=== PATIENT | female | born 1955 | race Caucasian/White ===

== ENCOUNTER 2017-01-12 23:00 | Emergency (ER) | payer BC ==
[2017-01-12 22:56] LABS: BASOPHILS 0.4 %; BASOPHILS ABSOLUTE 0.04 10/3/uL (0.0-0.16); EOSINOPHILS ABSOLUTE 0.27 10/3/uL (0.0-0.53); HEMATOCRIT 39.3 % (36.0-48.0); HEMOGLOBIN 13.3 g/dL (12.0-16.0); IMMATURE GRANULOCYTES 0.3 %; IMMATURE GRANULOCYTES ABSOLUTE 0.03 10/3/uL (0.0-0.11); LYMPHOCYTES 15.7 %; LYMPHOCYTES ABSOLUTE 1.41 10/3/uL (0.67-4.30); MEAN CORPUS HGB CONC 33.8 g/dL (32.0-36.0); MEAN CORPUSCULAR HEMOGLOB 30.4 pg (26.0-34.0); MEAN CORPUSCULAR VOLUME 89.7 fL (80-100); MEAN PLATELET VOLUME 9.5 fL (9.2-13.0); MONOCYTES 8.3 %; MONOCYTES ABSOLUTE 0.75 10/3/uL (0.21-1.20); NEUTROPHILS 72.3 %; NEUTROPHILS ABSOLUTE 6.49 10/3/uL (2.02-8.40); PLATELET COUNT 187 10/3/uL (150-400); RBC DISTRIBUTION WIDTH 12.2 % (12.0-16.0); RED CELL COUNT 4.38 10/6/uL (4.0-5.6)
[2017-01-12 22:57] LABS: MANUAL DIFF NO %
[~2017-01-12 23:00] MED LIST: AFRIN15 NAS; ALORA TD; ASAB PO; COUMADIN4 MG PO; COZ50 PO; DYAZIDE PO; L20 PO; MAX25 PO; NORV5 PO; PERCOCET1 TA4 PO; PRILOSEC40 MG PO; TOPXL100 PO; X5 PO
[2017-01-12 23:13] LABS: ALBUMIN 3.6 G/DL (3.5-5.0); ALKALINE PHOSPHATASE 80 U/L (45-117); BUN (BLOOD UREA NITROGEN) 11 MG/DL (6-23); CALCIUM, SERUM 8.4 MG/DL (8.5-10.4); CHLORIDE, SERUM 92 MMOL/L (96-112); CO2 (CARBON DIOXIDE) 26 MMOL/L (24-34); CREATININE 0.67 MG/DL (0.55-1.02); GFR AFRICAN AMERICAN 108 ML/MIN (>=60); GFR NON AFRICAN AMERICAN 94 ML/MIN (>=60); GLOBULIN 3.6 G/DL (2.5-4.1); GLUCOSE, SERUM 130 MG/DL (60-99); POTASSIUM, SERUM 3.4 MMOL/L (3.5-5.3); SGOT(AST) 58 U/L (5-40); SGPT(ALT) 69 U/L (5-65); SODIUM, SERUM 129 MMOL/L (135-148); TOTAL BILIRUBIN 0.7 MG/DL (0-1.2); TOTAL PROTEIN 7.2 G/DL (6.0-8.5); TROPONIN I <0.02 NG/ML (<0.05)
== END 2017-01-13 02:38 | disposition home or self-care (01) ==
LOC: ER 23:00
PROVIDERS: Nurse Practitioner Acute Care
DX: R42 Dizziness and giddiness (principal); R51 Headache; I50.9 Heart failure, unspecified; I10 Essential (primary) hypertension; K21.9 Gastro-esophageal reflux disease without esophagitis; Z79.82 Long term (current) use of aspirin; Z79.899 Other long term (current) drug therapy
CPT/HCPCS: 70450; 71010; 80053; 83690; 84484; 85025; 93005; 96374; 96375; 99285; A9270-GY; J2405; J3360

== ENCOUNTER 2017-03-21 23:00 | Observation (INO) | payer BC ==
--- NOTE | ~2017-03-21 | HP ---
History And Physical [facility] [address] [place]. [address] NAME: FREYA SOUTH : 51 STATUS : DIS Aaron PAT#: [id number] AGE: 62 ADM/REG DATE : 03/21/17 MR#: [id number] REPORT SERV DATE: 03/24/17 DICTATED BY: ZANE WISDOM DATE: 03/22/17 REPORT STATUS : Draft TRANSCRIBED BY: MODL DATE: 03/22/17 DATE OF ADMISSION: 03/21/2017 POOR AUDIO CHIEF COMPLAINT: A 62-year-old female, presenting with chest pain and shortness of breath. HISTORY OF PRESENT ILLNESS: The patient's history was obtained through careful interview with the patient and coupled with review of [facility] medical records. The patient states that just on the night of admission, she began to develop shortness of breath and chest pain. She describes her shortness of breath as dyspnea on exertion and her chest pain as in the middle of her chest, radiating to the left lower lung quality "like someone sitting on my chest" 810 severity. She has had a cough that is nonproductive. She has had nausea, but no vomiting. The patient has experienced lightheadedness. No diaphoresis. She has had chills, rigors but no fevers. Tonight, she has had a progressive headache as well. It is in her forehead area. It's 2/10 but then has increased as the evening has gone on. No abdominal pain. No lower extremity edema. REVIEW OF SYSTEMS: Otherwise, a 14-point review of systems was obtained and was negative. PAST MEDICAL HISTORY: 1. Congestive heart failure followed by Dr. Redd. 2. Gastroesophageal reflux disorder. Duodenitis seen by Dr. Nirav Valenzuela. 3. Pancreatitis. 4. Fatty liver disease. 5. Hypertension. 6. . 7. MCA on the right side, under observation. PAST SURGICAL HISTORY: 1. Knee surgery. 2. Right shoulder surgery. 3. Cholecystectomy. 4. Hysterectomy. ALLERGIES: NO KNOWN DRUG ALLERGIES. SOCIAL HISTORY: The patient is . She retired a year ago, as an operating room nurse History And Physical [address] [place]. [address] NAME: FREYA SOUTH : 51 STATUS : DIS Aaron PAT#: [id number] AGE: 62 ADM/REG DATE : 03/21/17 MR#: [id number] REPORT SERV DATE: 03/24/17 DICTATED BY: ZANE WISDOM DATE: 03/22/17 REPORT STATUS : Draft TRANSCRIBED BY: SHANNA DATE: 03/22/17 here at [facility]. She has no children. No tobacco abuse. Occasional wine or beer. FAMILY HISTORY: Heart disease. CURRENT MEDICATIONS: Include Norvasc 5 mg p.o. daily, aspirin 81 mg p.o. daily, estradiol, ibuprofen 800 mg p.o. b.i.d., Cozaar 50 mg p.o. b.i.d., metoprolol-XL 100 mg p.o. b.i.d., Prilosec 40 mg p.o. daily, Afrin nasal spray, triamterene/hydrochlorothiazide 37.5/25 p.o. daily. PHYSICAL EXAMINATION: VITAL SIGNS: Temperature 98.1, pulse 100, blood pressure 185/102, respiratory rate 18, O2 saturation 93% on 2 L nasal cannula. GENERAL: A pleasant, cooperative female, not in any particular distress though. HEENT: Pupils are equal, round, and reactive to light. No conjunctival pallor. No scleral icterus. Nares are patent. Oropharynx is clear of obstruction. Moist mucous membranes. NECK: Trachea midline. No thyromegaly. LYMPH: No cervical lymphadenopathy. No supraclavicular lymphadenopathy. RESPIRATORY: Completely clear to auscultation. I appreciate no wheezes, rales rhonchi. Has a normal respiratory effort despite claiming she feels short of breath. CARDIOVASCULAR: Tachycardic, regular rhythm. No murmurs, rubs, or gallops. No extremity edema is appreciated. ABDOMEN: Soft, nontender, nondistended. Normal bowel sounds auscultated throughout. No hepatosplenomegaly. DERMATOLOGICAL: Warm and dry extremities. No pallor. No cyanosis. PSYCHIATRIC: Normal affect. Good mood. Alert and oriented x3. LABORATORY DATA: White blood cell count 6.8, hemoglobin 14, hematocrit 42, platelets 178, sodium 131, potassium 3.8, chloride 95, bicarb 28, BUN 10, creatinine 0.7, glucose 100. ABG demonstrates pH 7.37, a PaCO2 of 39, a PaO2 of 76 and a bicarb of 22. INR 0.9. Lipase 342. Brain natriuretic peptide 84, troponin negative. EKG by my own evaluation shows no acute cardiopulmonary process. CT scan of the chest shows atelectasis changes. ASSESSMENT AND PLAN: 1. Chest pain, persistent. Follow troponin, placed on nitroglycerin paste, aspirin. Because of persistent chest pain rather than doing a stress test, which I believe it is appropriate to have a Cardiology consult with Dr. Redd. 2. Hypoxemia. Check procalcitonin, negative brain natriuretic peptide. Provide supportive care. No wheezes, no rales. Possible pneumonia ?.. 3. Right MCA brain because of increasing headache. We will check a CT scan of the brain. History And Physical [address] [address] NAME: FREYA SOUTH : 51 STATUS : DIS Aaron PAT#: [id number] AGE: 62 ADM/REG DATE : 03/21/17 MR#: [id number] REPORT SERV DATE: 03/24/17 DICTATED BY: ZANE WISDOM DATE: 03/22/17 REPORT STATUS : Draft TRANSCRIBED BY: SHANNA DATE: 03/22/17 PREETI/SHANNA Zane Wisdom M.D. / [id number] CC: MD Tavo Ordaz M.D.
--- NOTE | ~2017-03-21 | DS ---
Discharge Summary [facility] [address] [place]. [address] NAME: FREYA SOUTH : 51 STATUS : DIS Aaron PAT#: [id number] AGE: 62 ADM/REG DATE : 03/21/17 MR#: [id number] REPORT SERV DATE: 03/24/17 DICTATED BY: EWA BOOTHE DATE: 03/23/17 REPORT STATUS : Draft TRANSCRIBED BY: SHANNA DATE: 03/23/17 ADMISSION DATE: 03/21/2017 DISCHARGE DATE: 03/23/2017 PRINCIPAL DIAGNOSIS: . REASON FOR ADMISSION: Chest pain due to nausea and vomiting in the setting of acute gastroenteritis illness. Please see Dr. Toussaint's dictation on 03/22/2017. HOSPITAL COURSE: Admitted with chief complaint of chest pain, but because she had mentioned vomiting and a headache, she had CTs of the head, thorax, and abdomen, all of which were negative. Cardiology was consulted, but troponins were negative. EKG was negative. She actually stopped vomiting. Began having diarrhea. She actually felt better after IV fluids. She felt that she has had diarrhea, was recurrent for her. She took over-the- counter Lomotil and was able to be released in satisfactory condition, following up with primary care provider. DILLON/SHANNA Ewa Boothe M.D. / [id number] CC: Ewa Boothe M.D.
--- NOTE | ~2017-03-21 | CN ---
Consultation Report [facility] [address] [place]. [address] NAME: FREYA SOUTH : 51 STATUS : ADM Aaron PAT#: [id number] AGE: 62 ADM/REG DATE : 03/21/17 MR#: [id number] REPORT SERV DATE: 03/22/17 DICTATED BY: TAVO PEREZ DATE: 03/22/17 REPORT STATUS : Draft TRANSCRIBED BY: MODL DATE: 03/22/17 DATE OF CONSULTATION: 03/22/2017 CHIEF COMPLAINT: Nausea, vomiting, abdominal pain, chest pain, and anxiety. HISTORY OF PRESENT ILLNESS: Ms. South is a 62-year-old woman with a history of hypertension, pancreatitis, and preserved left ventricular systolic function by echo in 09/2015. She has no diagnosed history of coronary artery disease. She has had worsening episodes of nausea, sometimes with vomiting, feeling sweaty all over, anxious, and having chest pain at the same time. Her blood pressure is elevated during these episodes. She presents to the emergency room where she was admitted for further evaluation. Inpatient evaluation so far, has revealed a BNP of 84 and 105. Troponin has been negative at less than 0.02 x2. Procalcitonin as a marker of infection is 0.06. Amylase and lipase are within normal limits. She underwent a chest CT angiogram which showed no evidence of pulmonary embolism. PAST MEDICAL HISTORY: 1. Hypertension. 2. History of MCA aneurysm, followed by Neurology. 3. History of pancreatitis. SOCIAL HISTORY: She is a retired operating room nurse. She does not smoke or drink alcohol. FAMILY HISTORY: There is no family history of early coronary artery disease. REVIEW OF SYSTEMS: A complete review of systems was obtained, which is negative in detail except as mentioned above in the HPI. ALLERGIES: NO KNOWN DRUG ALLERGIES. MEDICATIONS: Include Norvasc 5 mg daily, aspirin 81 mg daily, estradiol, Motrin, Cozaar 50 mg twice a day, Toprol-XL 100 mg twice a day, Prilosec, Afrin nasal spray, and Maxzide. PHYSICAL EXAMINATION: VITAL SIGNS: Blood pressure initially 185/100, heart rate of 100, respiratory rate of 14. GENERAL: Comfortable, in no acute distress. HEENT: Anicteric. No xanthelasma. Lips without cyanosis. NECK: No JVD. Carotids 2+ and symmetric. No carotid bruits. LUNGS: CTA bilaterally. No wheezes or rhonchi. No accessory muscle use. COR: RRR. Normally placed PMI. Normal S1 and S2. No murmurs, rubs or gallops. ABD: Soft, nontender, nondistended. Normal bowel sounds. No abdominal bruits. EXT: No clubbing, cyanosis or edema. 2+ and symmetric distal pulses. Consultation Report [facility] [address] [place]. [address] NAME: FREYA SOUTH : 51 STATUS : ADM Aaron PAT#: [id number] AGE: 62 ADM/REG DATE : 03/21/17 MR#: [id number] REPORT SERV DATE: 03/22/17 DICTATED BY: TAVO PEREZ DATE: 03/22/17 REPORT STATUS : Draft TRANSCRIBED BY: SHANNA DATE: 03/22/17 SKIN: Warm. Dry. No venous stasis changes. MS: No kyphosis. NEURO/PSYCH: Oriented x3. No anxiety or depression. LABORATORY STUDIES: BNP of 105. Lactate of 1.5. Sedimentation rate of 7. Procalcitonin of 0.06. Lipase of 230, amylase of 43. Troponin of 0.02 x2. Creatinine of 0.7, potassium of 3.8, sodium 131. White count of 6.8 and hematocrit of 41. A chest CT angiogram shows no evidence of pulmonary embolism. A pulmonary infiltrate as described on the report. There is evidence of coronary artery atherosclerosis noted. EKG: A 12-lead EKG shows sinus rhythm at 88 beats per minute. Nonspecific T-wave abnormalities are noted. No Q-waves. IMPRESSION: This is a 62-year-old woman with a history of hypertension, obesity, and prior pancreatitis. She presents with episodes of nausea, vomiting, diaphoresis, and chest discomfort in the setting of hypertension. I do not know whether these are simply anxiety- type reactions or whether there is some underlying medical etiology. It is hard to diagnose her with congestive heart failure with a BNP of 84 and 105. There is certainly no evidence of a non-ST elevation myocardial infarction with negative troponins. She does not have pancreatitis by enzymes. Her sedimentation rate is low. We will consider further cardiovascular evaluations, such as echocardiogram or stress testing pending her clinical course over the next 24 hours. PETROS/SHANNA Tavo Perez M.D. / [id number] CC: Brandon Zheng MD
[2017-03-21 23:14] LABS: BASOPHILS 0.4 %; BASOPHILS ABSOLUTE 0.03 10/3/uL (0.0-0.16); EOSINOPHILS 4.1 %; EOSINOPHILS ABSOLUTE 0.28 10/3/uL (0.0-0.53); HEMATOCRIT 41.7 % (36.0-48.0); HEMOGLOBIN 14.5 g/dL (12.0-16.0); IMMATURE GRANULOCYTES 0.1 %; IMMATURE GRANULOCYTES ABSOLUTE 0.01 10/3/uL (0.0-0.11); LYMPHOCYTES 33.2 %; LYMPHOCYTES ABSOLUTE 2.25 10/3/uL (0.67-4.30); MEAN CORPUS HGB CONC 34.8 g/dL (32.0-36.0); MEAN CORPUSCULAR HEMOGLOB 31.7 pg (26.0-34.0); MEAN PLATELET VOLUME 9.2 fL (9.2-13.0); MONOCYTES 8.1 %; MONOCYTES ABSOLUTE 0.55 10/3/uL (0.21-1.20); NEUTROPHILS 54.1 %; NEUTROPHILS ABSOLUTE 3.66 10/3/uL (2.02-8.40); PLATELET COUNT 178 10/3/uL (150-400); RBC DISTRIBUTION WIDTH 12.5 % (12.0-16.0); RED CELL COUNT 4.58 10/6/uL (4.0-5.6); WHITE BLOOD CELLS 6.8 10/3/uL (4.5-10.5)
[2017-03-21 23:16] LABS: MANUAL DIFF NO %
[2017-03-21 23:21] LABS: INTERNATIONAL NORMAL RATI 0.9 UNITS (-); PARTIAL THROMBO TIME 24.5 SEC (22.5-37.2); PROTIME (NOT ORD) 12.4 SEC (12.0-14.5)
[2017-03-21 23:33] LABS: BUN (BLOOD UREA NITROGEN) 10 MG/DL (6-23); CALCIUM, SERUM 9.2 MG/DL (8.5-10.4); CHEST PAIN PROFILE TAT 0 Hrs 23 Mins; CHLORIDE, SERUM 95 MMOL/L (96-112); CO2 (CARBON DIOXIDE) 28 MMOL/L (24-34); GFR AFRICAN AMERICAN 106 ML/MIN (>=60); GFR NON AFRICAN AMERICAN 92 ML/MIN (>=60); POTASSIUM, SERUM 3.8 MMOL/L (3.5-5.3); SODIUM, SERUM 131 MMOL/L (135-148); TROPONIN I <0.02 NG/ML (<0.05)
[2017-03-21 23:35] LABS: GLUCOSE, SERUM 100 MG/DL (60-99)
[2017-03-22 01:17] LABS: D-DIMER QUANTITATIVE 1.16 ug/mLFEU (< 0.50)
[2017-03-22 01:30] LABS: ALBUMIN 4.1 G/DL (3.5-5.0); SGOT(AST) 92 U/L (5-40); SGPT(ALT) 115 U/L (5-65); TOTAL BILIRUBIN 0.4 MG/DL (0-1.2); TOTAL PROTEIN 7.8 G/DL (6.0-8.5)
[2017-03-22 01:31] LABS: ALKALINE PHOSPHATASE 95 U/L (45-117); DIRECT BILIRUBIN 0.1 MG/DL (0.0-0.4); INDIRECT BILIRUBIN(NOT ORDER) 0.3 MG/DL (0.1-0.9)
[2017-03-22 04:10] LABS: CARBOXYHEMOGLOBIN 1.2 % (0-3); DEVICE NC; HCO3 (ACTUAL BICARBONATE) 21.9 MEQ/L (23-27); HEMOBLOGIN CONTENT 13.4 G/DL (12-16); INSTRUMENT SERIAL # 8087; METHEMOGLOBIN 0.1 % (0-3); O2 CONTENT 17.4 VOL% (18-24); OPERATOR ID 17537; PCO2 (CO2 TENSION) 39 MMHG (35-45); PO2 (O2 TENSION) 76 MMHG (79-93); SAMPLE Arterial; pH 7.37 (7.37-7.43)
[2017-03-22] MEDS ORDERED: PRILOSEC40 MG PO (05:14)
[2017-03-22] MEDS ORDERED: COZ50 PO (05:14)
[2017-03-22] MEDS ORDERED: MAX25 PO (05:14)
[2017-03-22] MEDS ORDERED: TOPXL100 PO (05:15)
[2017-03-22] MEDS ORDERED: NORV5 PO (05:15)
[2017-03-22] MEDS ORDERED: MINIVELLE1 EAC2 TOP (05:15)
[2017-03-22] MEDS ORDERED: IBU800 PO (05:16)
[2017-03-22] MEDS ORDERED: ASAB PO (05:16)
[2017-03-22] MEDS ORDERED: AFRIN15 NAS (05:16)
[2017-03-22 09:42] LABS: TROPONIN I <0.02 NG/ML (<0.05)
[2017-03-22 10:03] LABS: PROCALCITONIN 0.06 ng/mL (<0.5)
[2017-03-22 11:17] LABS: C-REACTIVE PROTEIN < 2.9 MG/L (<8.0)
[2017-03-22 14:59] LABS: AMPHETAMINES (NOT ORD) NEG (NEG); BARBITURATES (NOT ORDERED NEG (NEG); BENZODIAZEPINES (NOT ORD) POS (NEG); CANNABINOIDS (THC) NEG (NEG); COCAINE (NOT ORDERED) NEG (NEG); OPIATES POS (NEG); PHENCYCLIDINE(PCP) NEG (NEG); TRICYCLICS NEG (NEG)
[2017-03-23] MEDS ORDERED: ZOFRANODT8 PO (10:54)
== END 2017-03-23 13:54 | disposition home or self-care (01) ==
LOC: ER 23:00 → 7NO 23:59
PROVIDERS: Emergency Medicine; Hospitalist; Nurse Practitioner
DX: R07.9 Chest pain, unspecified (principal); K52.9 Noninfective gastroenteritis and colitis, unspecified; K21.9 Gastro-esophageal reflux disease without esophagitis; K76.0 Fatty (change of) liver, not elsewhere classified; I11.0 Hypertensive heart disease with heart failure; I50.9 Heart failure, unspecified; R09.02 Hypoxemia; Z90.49 Acquired absence of other specified parts of digestive tract; Z98.890 Other specified postprocedural states; Z90.710 Acquired absence of both cervix and uterus; Z82.49 Family history of ischemic heart disease and other diseases of the circulatory system; Z79.82 Long term (current) use of aspirin; Z79.899 Other long term (current) drug therapy; Z96.651 Presence of right artificial knee joint
CPT/HCPCS: 36600; 70450; 71020; 71275; 74176; 80048; 80076; 80305; 82150; 82805; 83605; 83690; 83735; 83880; 84145; 84443; 84484; 85025; 85379; 85610; 85652; 85730; 86140; 87040; 87449; 93005; 96372; 96374; 96375; 96376; 99285; A9270-GY; C9113; G0378; J2405; J2765; Q9967